=== PATIENT | female | born 1995 | race Caucasian/White ===

== ENCOUNTER 2017-06-10 11:51 | Emergency (ER) | payer BC ==
[~2017-06-10] VITALS: Ht 165.1 cm; Wt 68.0 kg
[2017-06-10 12:01] VITALS: Ht 165.1 cm; Wt 68.0 kg
[2017-06-10 13:04] VITALS: BP 138/89
== END 2017-06-10 13:04 | disposition home or self-care (01) ==
LOC: ED 11:51
DX: S60.812A Abrasion of left wrist, initial encounter (principal); S60.811A Abrasion of right wrist, initial encounter; V49.9XXA Car occupant (driver) (passenger) injured in unspecified traffic accident, initial encounter; Y93.89 Activity, other specified; Y92.89 Other specified places as the place of occurrence of the external cause; Y99.8 Other external cause status
CPT/HCPCS: 90715